=== PATIENT | male | born 1975 | race Caucasian/White ===

== ENCOUNTER 2019-03-04 11:54 | Emergency (ER) | payer MEDICAID, OTHER ==
[~2019-03-04] VITALS: Ht 167.6 cm; Wt 117.6 kg
[~2019-03-04 11:54] MED LIST: ALBU4TAB3; IBUP-1623; METH18TA5
[2019-03-04] MEDS ORDERED: LISI-167 PO (12:02)
--- NOTE | 2019-03-04 12:29 | NUR ---
PT WITH C/O SUDDEN ONSET OF CP WHILE AT WORK. PT STATES PAIN IS NEARLY GONE AT THIS TIME, BUT WAS SHARP IN NATURE. PT DENIES SOB, TRAUMA AT THIS TIME. PT TO BP, CARD MONITOR, CONT PULSE OX
[2019-03-04 12:48] LABS: BASOPHILS # (AUTO) 0.08 x10^3/uL (0-0.1); MD NO; MONOCYTES # (AUTO) 0.74 x10^3/uL (0.2-0.8); MONOCYTES % (AUTO) 8 % (2-9); RED CELL DISTRIBUTION WIDTH 13.1 % (9.4-14.8)
[2019-03-04 12:58] LABS: ALBUMIN 3.5 g/dL (3.4-5.0); ANION GAP 5 mmol/L (5-15); BASOPHILS % (AUTO) 1 % (0-1); CALCIUM 8.6 mg/dL (8.5-10.1); CHLORIDE 107 mmol/L (98-107); CREATININE 0.88 mg/dL (0.7-1.3); EOSINOPHILS # (AUTO) 0.46 x10^3/uL (0-0.4); EOSINOPHILS % (AUTO) 5 % (1-7); LYMPHOCYTES # (AUTO) 2.44 x10^3/uL (1-3.4); LYMPHOCYTES % (AUTO) 26 % (22-44); MEAN CORPUSCULAR HEMOGLOBIN 34.1 pg (27.5-34.5); MEAN CORPUSCULAR HGB CONC 34.4 g/dL (33.2-36.2); MEAN CORPUSCULAR VOLUME 99.1 fL (81-97); MEAN PLATELET VOLUME 8.7 fL (7.4-10.4); NEUTROPHILS # (AUTO) 5.56 x10^3/uL (1.8-6.8); NEUTROPHILS % (AUTO) 60 % (42-75); PLATELET COUNT 292 x10^3/uL (130-400); RED BLOOD COUNT 4.72 x10^6/uL (4.38-5.82)
[2019-03-04 13:02] LABS: TROPONIN I < 0.015 ng/mL (0.000-0.045)
[2019-03-04 13:55] VITALS: BP 124/70
--- NOTE | 2019-03-04 13:56 | NUR ---
PT RESTING ON DALE GARCIA NOTED. PT PLACED FOR RECHECK
--- NOTE | 2019-03-04 14:52 | NUR ---
Patient/Caregiver given discharge instructions and they have confirmed that they understand the instructions. Patient ambulatory with steady gait.
== END 2019-03-04 14:54 | disposition home or self-care (01) ==
LOC: ED 14:16
DX: R07.89 Other chest pain (principal); I10 Essential (primary) hypertension
CPT/HCPCS: 36415; 71045; 80048; 82040; 84484; 85025; 93005; 99284

== ENCOUNTER 2019-03-08 16:04 | Emergency (ER) | payer BC, MEDICAID ==
[~2019-03-08] VITALS: Ht 167.6 cm; Wt 118.0 kg
[~2019-03-08 16:04] MED LIST changes: +LISI-167 PO
[2019-03-08 16:40] VITALS: BP 144/92
== END 2019-03-08 17:51 | disposition home or self-care (01) ==
LOC: ED 16:51
DX: J00 Acute nasopharyngitis [common cold] (principal); E66.09 Other obesity due to excess calories; F17.210 Nicotine dependence, cigarettes, uncomplicated; I10 Essential (primary) hypertension
CPT/HCPCS: 71046; 99283

== ENCOUNTER 2019-03-18 00:26 | Emergency (ER) | payer BC, MEDICAID ==
[~2019-03-18] VITALS: Ht 167.6 cm; Wt 119.4 kg
[2019-03-18 00:30] VITALS: BP 140/90
== END 2019-03-18 01:38 | disposition home or self-care (01) ==
LOC: ED 00:57
DX: R11.2 Nausea with vomiting, unspecified (principal); R19.7 Diarrhea, unspecified; I10 Essential (primary) hypertension; Z72.89 Other problems related to lifestyle
CPT/HCPCS: 99281

== ENCOUNTER 2019-04-10 18:42 | Emergency (ER) | payer MEDICAID ==
[~2019-04-10] VITALS: Ht 167.6 cm; Wt 118.6 kg
[2019-04-10 18:46] VITALS: BP 166/107
--- NOTE | 2019-04-10 19:17 | NUR ---
PT DX WITH BRONCHITIS ON SATURDAY. MED PRESCRIBED MADE PT DROWSY AND PT DRIVES TRUCK FOR WORK. PT STOPPED TAKING MEDS AND COUGH HAS GOTTEN WORSE.
[2019-04-10] MEDS ORDERED: DEXAMETHASONE 4 MG TABLET ONE (19:43)
--- NOTE | 2019-04-10 19:45 | NUR ---
MEDS ADMIN PER JUN.
[2019-04-10] MEDS ORDERED: DEXAMETHASONE 4 MG TABLET PO ONE (20:00)
== END 2019-04-10 20:25 | disposition home or self-care (01) ==
LOC: ED 20:19
DX: B34.9 Viral infection, unspecified (principal); J02.9 Acute pharyngitis, unspecified; I10 Essential (primary) hypertension
CPT/HCPCS: 71046; 99283

== ENCOUNTER 2019-04-17 15:09 | Emergency (ER) | payer MEDICAID ==
[~2019-04-17] VITALS: Ht 167.6 cm; Wt 119.6 kg
[2019-04-17 15:11] VITALS: BP 160/110
[2019-04-17] MEDS ORDERED: BENZONATATE 100 MG CAPSULE ONE (15:26)
[2019-04-17] MEDS ORDERED: BENZONATATE 100 MG CAPSULE PO ONE (15:30)
--- NOTE | 2019-04-17 15:36 | NUR ---
PO meds given as per emar for chronic cough. Pt has no distress/dyspnea at time of assessment & d/c. Work note & Rx given. Pt verb. understanding of instructions.
== END 2019-04-17 15:36 | disposition home or self-care (01) ==
LOC: ED 15:30
DX: J20.9 Acute bronchitis, unspecified (principal); I10 Essential (primary) hypertension; J45.909 Unspecified asthma, uncomplicated
CPT/HCPCS: 93005; 99283

== ENCOUNTER 2019-04-26 18:19 | Emergency (ER) | payer MEDICAID ==
[~2019-04-26] VITALS: Ht 167.6 cm; Wt 119.7 kg
[2019-04-26 18:22] VITALS: BP 165/99
--- NOTE | 2019-04-26 18:59 | NUR ---
Pt amb w/ steady gait from [facility] at this time.
== END 2019-04-26 19:51 | disposition home or self-care (01) ==
LOC: ED 19:28
DX: S39.012A Strain of muscle, fascia and tendon of lower back, initial encounter (principal); I10 Essential (primary) hypertension; J45.909 Unspecified asthma, uncomplicated; X58.XXXA Exposure to other specified factors, initial encounter; Y93.89 Activity, other specified; Y92.89 Other specified places as the place of occurrence of the external cause; Y99.8 Other external cause status
CPT/HCPCS: 99283

== ENCOUNTER 2019-07-01 06:02 | Emergency (ER) | payer BC, MEDICAID ==
[~2019-07-01] VITALS: Ht 167.6 cm; Wt 118.0 kg
[2019-07-01 06:05] VITALS: BP 154/114
== END 2019-07-01 06:35 | disposition home or self-care (01) ==
LOC: ED 06:13
DX: S39.012A Strain of muscle, fascia and tendon of lower back, initial encounter (principal); I10 Essential (primary) hypertension; F17.210 Nicotine dependence, cigarettes, uncomplicated; J45.909 Unspecified asthma, uncomplicated; X58.XXXA Exposure to other specified factors, initial encounter; Y93.89 Activity, other specified; Y92.89 Other specified places as the place of occurrence of the external cause; Y99.8 Other external cause status
CPT/HCPCS: 99283

== ENCOUNTER 2019-07-08 14:14 | Emergency (ER) | payer BC ==
[~2019-07-08] VITALS: Ht 167.6 cm; Wt 121.9 kg
--- NOTE | 2019-07-08 14:49 | NUR ---
C/O PAIN TO UPPER BACK AND LT FLANK. STARTED THIS MORNING, WOKE W/ PAIN. HAS NAPROXEN AND ROBAXIN AT HOME. TOOK NAPROXEN 0900 TODAY. HASN'T TAKEN ROBAXIN - "I CAN'T TAKE IT UNTIL I STOP DRIVING FOR THE DAY" (COMMUTING TO/FROM WORK)
[2019-07-08] MEDS ORDERED: NAPROXEN (14:56)
[2019-07-08 14:58] VITALS: BP 136/93
== END 2019-07-08 15:18 | disposition home or self-care (01) ==
LOC: ED 15:15
DX: M54.5 Low back pain (principal); G89.29 Other chronic pain; I10 Essential (primary) hypertension; J45.909 Unspecified asthma, uncomplicated
CPT/HCPCS: 99282

== ENCOUNTER 2019-07-14 09:22 | Emergency (ER) | payer BC, MEDICAID ==
[~2019-07-14] VITALS: Ht 167.6 cm; Wt 118.6 kg
[~2019-07-14 09:22] MED LIST changes: +NAPROXEN
[2019-07-14 09:24] VITALS: BP 157/103
--- NOTE | 2019-07-14 09:40 | NUR ---
PT AMBULATES TO ROOM 5 PER PEDIS. PT PUTS ON PATIENT GOWN, AND CLIMBS INTO BET WITHOUT DIFF. PT STATES "MY LIVE JOB DOESN'T GET THAT MY BACK IS HURT AND I CAN'T LIFT 50 POUNDS. NOW IF I DON'T I'M GOING TO LOSE MY JOB." RN INQUIRES WHETHER THIS IS A WORKERS COMP, AND PATIENT STATES NO. PT HAS BEEN HERE 3 TIMES FOR SAME ISSUE, AND WANTS RESOLVE. RN INFORMED PATIENT THAT HE NEEDS TO FOLLOW UP WITH A PRIMARY MD WHO CAN HELP WITH PHYSICAL THERAPY AND PRISON TREATMENT.
--- NOTE | 2019-07-14 11:37 | NUR ---
DISCHARGE INSTRUCTIONS GIVEN TO PATIENT. PT UNHAPPY WITH HIS DISCHARGE PAPERWORK, DUE TO NO NEW MEDICATIONS. PT INFORMED TO FOLLOW UP WITH HIS PCP.
== END 2019-07-14 11:42 | disposition home or self-care (01) ==
LOC: ED 09:58
DX: S29.012A Strain of muscle and tendon of back wall of thorax, initial encounter (principal); I10 Essential (primary) hypertension; X58.XXXA Exposure to other specified factors, initial encounter; Y93.89 Activity, other specified; Y92.89 Other specified places as the place of occurrence of the external cause; Y99.8 Other external cause status
CPT/HCPCS: 99281

== ENCOUNTER 2019-07-29 22:39 | Emergency (ER) | payer MEDICAID ==
[~2019-07-29] VITALS: Ht 167.6 cm; Wt 120.7 kg
[2019-07-29] MEDS ORDERED: SODIUM CHLORIDE FLUSH 10ML SYR IVF ONE (23:00)
--- NOTE | 2019-07-29 23:08 | NUR ---
pt resting on gurney, monitors applied, siderails up x2, call light within reach
[2019-07-29] MEDS ORDERED: METH750T87 PO (23:09)
[2019-07-29 23:25] LABS: BASOPHILS # (AUTO) 0.05 x10^3/uL (0-0.1); BASOPHILS % (AUTO) 1 % (0-1); EOSINOPHILS # (AUTO) 0.47 x10^3/uL (0-0.4); EOSINOPHILS % (AUTO) 5 % (1-7); LYMPHOCYTES # (AUTO) 2.75 x10^3/uL (1-3.4); LYMPHOCYTES % (AUTO) 26 % (22-44); MD NO; MEAN CORPUSCULAR HGB CONC 34.4 g/dL (33.2-36.2); MEAN CORPUSCULAR VOLUME 96.1 fL (81-97); MEAN PLATELET VOLUME 8.6 fL (7.4-10.4); MONOCYTES # (AUTO) 0.88 x10^3/uL (0.2-0.8); MONOCYTES % (AUTO) 8 % (2-9); NEUTROPHILS # (AUTO) 6.31 x10^3/uL (1.8-6.8); NEUTROPHILS % (AUTO) 60 % (42-75); PLATELET COUNT 274 x10^3/uL (130-400); RED CELL DISTRIBUTION WIDTH 13.1 % (9.4-14.8)
[2019-07-29 23:33] LABS: ALANINE AMINOTRANSFERASE 99 U/L (12-78); ALBUMIN 3.9 g/dL (3.4-5.0); ANION GAP 8 mmol/L (5-15); CALCIUM 8.8 mg/dL (8.5-10.1); CHLORIDE 103 mmol/L (98-107); CREATININE 1.16 mg/dL (0.7-1.3)
[2019-07-29 23:38] LABS: ALKALINE PHOSPHATASE 108 U/L (45-117); BILIRUBIN,TOTAL 0.6 mg/dL (0.2-1.0); TOTAL PROTEIN 8.2 g/dL (6.4-8.2); TROPONIN I < 0.015 ng/mL (0.000-0.045)
[2019-07-29 23:59] VITALS: BP 148/90
== END 2019-07-30 00:08 | disposition home or self-care (01) ==
LOC: ED 23:47
DX: E11.65 Type 2 diabetes mellitus with hyperglycemia (principal); I10 Essential (primary) hypertension; J45.909 Unspecified asthma, uncomplicated; R94.31 Abnormal electrocardiogram [ECG] [EKG]; R42 Dizziness and giddiness
CPT/HCPCS: 36415; 80053; 82962; 83036; 83690; 84484; 85025; 93005; 99284

== ENCOUNTER 2019-09-11 00:12 | Emergency (ER) | payer MEDICAID ==
[~2019-09-11] VITALS: Ht 167.6 cm; Wt 119.5 kg
[~2019-09-11 00:12] MED LIST changes: +METH750T87 PO
[2019-09-11 00:13] VITALS: BP 155/96
== END 2019-09-11 02:05 | disposition home or self-care (01) ==
LOC: ED 01:52
DX: M54.5 Low back pain (principal); I10 Essential (primary) hypertension; E11.9 Type 2 diabetes mellitus without complications; G89.29 Other chronic pain; J45.909 Unspecified asthma, uncomplicated
CPT/HCPCS: 99283

== ENCOUNTER 2019-09-16 13:09 | Emergency (ER) | payer BC, MEDICAID ==
[~2019-09-16] VITALS: Ht 167.6 cm; Wt 123.3 kg
[2019-09-16] MEDS ORDERED: METF500T17 PO (13:48)
[2019-09-16 14:08] LABS: BASOPHILS # (AUTO) 0.04 x10^3/uL (0-0.1); BASOPHILS % (AUTO) 1 % (0-1); EOSINOPHILS # (AUTO) 0.31 x10^3/uL (0-0.4); EOSINOPHILS % (AUTO) 4 % (1-7); LYMPHOCYTES # (AUTO) 2.06 x10^3/uL (1-3.4); LYMPHOCYTES % (AUTO) 25 % (22-44); MD NO; MEAN CORPUSCULAR HEMOGLOBIN 33.3 pg (27.5-34.5); MEAN CORPUSCULAR HGB CONC 34.6 g/dL (33.2-36.2); MEAN CORPUSCULAR VOLUME 96.3 fL (81-97); MEAN PLATELET VOLUME 8.6 fL (7.4-10.4); MONOCYTES # (AUTO) 0.52 x10^3/uL (0.2-0.8); MONOCYTES % (AUTO) 6 % (2-9); NEUTROPHILS # (AUTO) 5.49 x10^3/uL (1.8-6.8); NEUTROPHILS % (AUTO) 65 % (42-75); PLATELET COUNT 263 x10^3/uL (130-400)
[2019-09-16 14:21] LABS: ALBUMIN 3.5 g/dL (3.4-5.0); ANION GAP 6 mmol/L (5-15); CALCIUM 8.9 mg/dL (8.5-10.1); CHLORIDE 105 mmol/L (98-107); CREATININE 0.92 mg/dL (0.7-1.3)
[2019-09-16 14:24] LABS: TROPONIN I < 0.015 ng/mL (0.000-0.045)
--- NOTE | 2019-09-16 14:28 | NUR ---
PT WAS AT WORK, FELT BP GO UP, "A LITTLE GAMBINO" "TIRED FEELING". 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 ORAL INTAKE THIS MORNING: "ALL PROTEIN" AND "ABOUT 7 SEN". DENIES DIETING. PT A&OX4, RESP EVEN & UNLABORED, SPEECH CLEAR, SKIN WNL. CURRENTLY, PT STATES "I FEEL BETTER", DENIES GAMBINO.
--- NOTE | 2019-09-16 14:36 | NUR ---
EKG DONE. LABS DRAWN EARLIER. CXR DONE EARLIER.
--- NOTE | 2019-09-16 15:37 | NUR ---
PT AMBULATORY TO [facility] BR W/OUT INCIDENT; GAIT STEADY.
[2019-09-16 15:51] VITALS: BP 166/104
== END 2019-09-16 15:54 | disposition home or self-care (01) ==
LOC: ED 15:40
DX: I10 Essential (primary) hypertension (principal); R51 Headache; R07.9 Chest pain, unspecified; R11.0 Nausea; E11.9 Type 2 diabetes mellitus without complications; J45.909 Unspecified asthma, uncomplicated
CPT/HCPCS: 36415; 71045; 80048; 82040; 84484; 85025; 93005; 99285

== ENCOUNTER 2019-10-05 22:32 | Emergency (ER) | payer BC, MEDICAID ==
[~2019-10-05] VITALS: Ht 167.6 cm; Wt 121.5 kg
[~2019-10-05 22:32] MED LIST changes: +METF500T17 PO
[2019-10-05 22:35] VITALS: BP 160/118
[2019-10-05] MEDS ORDERED: METOPROLOL TARTRATE 25 MG TAB ONE (22:55)
[2019-10-05] MEDS ORDERED: METOPROLOL TARTRATE 25 MG TAB PO ONE (23:00)
--- NOTE | 2019-10-05 23:16 | NUR ---
PT AGGRESSIVE AND ANGRY WITH THIS NURSE BECAUSE HIS GOWN SLIPPED DOWN HIS SHOULDERS. CUSSING AND DEMANDING WITH STAFF. PT INSTRUCTED NOT TO BE VERBALLY AGGRESSIVE WITH STAFF AND ASSISTED IN UNDRESSING.
[2019-10-05 23:23] LABS: BASOPHILS # (AUTO) 0.06 x10^3/uL (0-0.1); BASOPHILS % (AUTO) 1 % (0-1); EOSINOPHILS % (AUTO) 4 % (1-7); LYMPHOCYTES # (AUTO) 3.05 x10^3/uL (1-3.4); LYMPHOCYTES % (AUTO) 31 % (22-44); MD NO; MEAN CORPUSCULAR HEMOGLOBIN 33.6 pg (27.5-34.5); MEAN CORPUSCULAR HGB CONC 34.5 g/dL (33.2-36.2); MONOCYTES # (AUTO) 1.03 x10^3/uL (0.2-0.8); MONOCYTES % (AUTO) 10 % (2-9); NEUTROPHILS % (AUTO) 54 % (42-75); PLATELET COUNT 281 x10^3/uL (130-400); RED BLOOD COUNT 4.69 x10^6/uL (4.38-5.82); RED CELL DISTRIBUTION WIDTH 13.5 % (9.4-14.8)
[2019-10-05 23:36] LABS: ALANINE AMINOTRANSFERASE 107 U/L (12-78); ALBUMIN 3.5 g/dL (3.4-5.0); ANION GAP 7 mmol/L (5-15); CALCIUM 8.4 mg/dL (8.5-10.1); CHLORIDE 110 mmol/L (98-107); CREATININE 1.08 mg/dL (0.7-1.3)
[2019-10-05 23:40] LABS: ALKALINE PHOSPHATASE 113 U/L (45-117); BILIRUBIN,TOTAL 0.6 mg/dL (0.2-1.0); TOTAL PROTEIN 7.6 g/dL (6.4-8.2); TROPONIN I < 0.015 ng/mL (0.000-0.045)
[2019-10-06 00:15] LABS: MICROSCOPIC NOT IND
== END 2019-10-06 00:54 | disposition home or self-care (01) ==
LOC: ED 23:57
DX: R51 Headache (principal); R94.31 Abnormal electrocardiogram [ECG] [EKG]; I10 Essential (primary) hypertension; E11.9 Type 2 diabetes mellitus without complications
CPT/HCPCS: 36415; 71045; 80053; 81003; 83880; 84484; 85025; 93005; 99285

== ENCOUNTER 2019-10-12 11:21 | Emergency (ER) | payer BC, MEDICAID ==
[~2019-10-12] VITALS: Ht 167.6 cm; Wt 120.0 kg
[2019-10-12 11:23] VITALS: BP 161/99
== END 2019-10-12 12:13 | disposition home or self-care (01) ==
LOC: ED 12:10
DX: I10 Essential (primary) hypertension (principal); R51 Headache; E11.9 Type 2 diabetes mellitus without complications
CPT/HCPCS: 99281; 99282

== ENCOUNTER 2019-10-29 19:25 | Emergency (ER) | payer BC, MEDICAID ==
[~2019-10-29] VITALS: Ht 167.6 cm; Wt 120.5 kg
[2019-10-29 19:29] VITALS: BP 160/100
[2019-10-29] MEDS ORDERED: KETOROLAC 30 MG/1 ML ONE (19:44)
== END 2019-10-29 20:48 | disposition left against medical advice (07) ==
LOC: ED 20:07
DX: R42 Dizziness and giddiness (principal); Z53.21 Procedure and treatment not carried out due to patient leaving prior to being seen by health care provider
CPT/HCPCS: 93005

== ENCOUNTER 2019-11-15 16:53 | Emergency (ER) | payer BC, MEDICAID ==
[~2019-11-15] VITALS: Ht 167.6 cm; Wt 118.6 kg
[2019-11-15 16:55] VITALS: BP 161/104
--- NOTE | 2019-11-15 17:06 | NUR ---
PT REPORTS BODY ACHES, CHILLS AND SWEATS X2 DAYS, DENIES CP, SOB OR COUGH. PLACED VITAL SIGNS MONITORS. CALL LIGHT PLACED WITHIN REACH.
[2019-11-15] MEDS ORDERED: IBUPROFEN 600 MG TABLET ONE (17:29)
[2019-11-15] MEDS ORDERED: IBUPROFEN 600 MG TABLET PO ONE (17:30)
--- NOTE | 2019-11-15 17:35 | NUR ---
TASK RN COVERING PRIMARY RN MEAL BREAK. PT MEDICATED PER ERP ORDER FOR GENERALIZED ACHES/CHILLS. PT DENIES PAIN. PT STATES ERP WAS GOING TO ORDER LABS BUT PT DIDN'T WANT THEM. AWAITING DC PAPERWORK.
== END 2019-11-15 17:58 | disposition home or self-care (01) ==
LOC: ED 17:54
DX: B34.9 Viral infection, unspecified (principal); M79.10 Myalgia, unspecified site; I10 Essential (primary) hypertension; E11.9 Type 2 diabetes mellitus without complications; J45.909 Unspecified asthma, uncomplicated
CPT/HCPCS: 99282

== ENCOUNTER 2019-12-15 14:58 | Emergency (ER) | payer MEDICAID ==
[~2019-12-15] VITALS: Ht 167.6 cm; Wt 118.3 kg
[2019-12-15 15:09] VITALS: BP 153/104
[2019-12-15] MEDS ORDERED: IBUPROFEN 200 MG TABLET PO ONE (15:30)
[2019-12-15] MEDS ORDERED: IBUPROFEN 600 MG TABLET ONE (15:50)
== END 2019-12-15 16:18 | disposition home or self-care (01) ==
LOC: ED 16:00
DX: R10.32 Left lower quadrant pain (principal); I10 Essential (primary) hypertension; E11.9 Type 2 diabetes mellitus without complications
CPT/HCPCS: 99282

== ENCOUNTER 2019-12-21 08:38 | Emergency (ER) | payer MEDICAID ==
[~2019-12-21] VITALS: Ht 167.6 cm; Wt 118.5 kg
[2019-12-21 08:41] VITALS: BP 160/98
--- NOTE | 2019-12-21 09:30 | NUR ---
BANKING PARALEGAL: PT TO ROOM AT THIS TIME. NADN.AMBULATORY WITH STEADY GAIT
--- NOTE | 2019-12-21 09:36 | NUR ---
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 Right in the middle of the clinical screen, pt took a call from his mother and began discussing future moving plans. Unable to continue exam.
[2019-12-21] MEDS ORDERED: METHOCARBAMOL 750 MG TABLET ONE (10:13)
[2019-12-21] MEDS ORDERED: KETOROLAC 60 MG/2 ML ONE (10:13)
--- NOTE | 2019-12-21 10:24 | NUR ---
Pt on phone again when in to administer medication. Pt now refusing the toradol stating he "knows what works for him". Did take robaxin.
[2019-12-21] MEDS ORDERED: METHOCARBAMOL 750 MG TABLET PO ONE (10:30)
[2019-12-21] MEDS ORDERED: KETOROLAC 30 MG/1 ML IM ONE (10:30)
== END 2019-12-21 11:14 | disposition home or self-care (01) ==
LOC: ED 09:10
DX: M62.830 Muscle spasm of back (principal); J45.909 Unspecified asthma, uncomplicated; E11.9 Type 2 diabetes mellitus without complications; G89.29 Other chronic pain; I10 Essential (primary) hypertension
CPT/HCPCS: 99283

== ENCOUNTER 2019-12-26 17:56 | Emergency (ER) | payer MEDICAID ==
[~2019-12-26] VITALS: Ht 167.6 cm; Wt 119.6 kg
[2019-12-26] MEDS ORDERED: ONDANSETRON ODT 4 MG ONE (18:15)
[2019-12-26] MEDS ORDERED: MAALOX/HYOSCYAMINE/LIDOCAINE 45 ML BTL ONE (18:15)
[2019-12-26] MEDS ORDERED: ONDANSETRON ODT 4 MG PO ONE (18:30)
[2019-12-26] MEDS ORDERED: MAALOX/HYOSCYAMINE/LIDOCAINE 45 ML BTL PO ONE (18:30)
[2019-12-26 18:37] LABS: ALANINE AMINOTRANSFERASE 107 U/L (12-78); ALBUMIN 3.3 g/dL (3.4-5.0); ANION GAP 9 mmol/L (5-15); CALCIUM 9.1 mg/dL (8.5-10.1); CHLORIDE 105 mmol/L (98-107); CREATININE 1.07 mg/dL (0.7-1.3)
[2019-12-26 18:40] LABS: ALKALINE PHOSPHATASE 115 U/L (45-117); BILIRUBIN,TOTAL 0.5 mg/dL (0.2-1.0); TOTAL PROTEIN 7.7 g/dL (6.4-8.2)
[2019-12-26 18:44] LABS: BASOPHILS # (AUTO) 0.05 x10^3/uL (0-0.1); BASOPHILS % (AUTO) 0 % (0-1); EOSINOPHILS # (AUTO) 0.42 x10^3/uL (0-0.4); EOSINOPHILS % (AUTO) 4 % (1-7); LYMPHOCYTES # (AUTO) 2.57 x10^3/uL (1-3.4); LYMPHOCYTES % (AUTO) 24 % (22-44); MD NO; MEAN CORPUSCULAR HEMOGLOBIN 33.3 pg (27.5-34.5); MEAN CORPUSCULAR HGB CONC 33.9 g/dL (33.2-36.2); MEAN CORPUSCULAR VOLUME 98.2 fL (81-97); MEAN PLATELET VOLUME 8.9 fL (7.4-10.4); MONOCYTES # (AUTO) 0.75 x10^3/uL (0.2-0.8); MONOCYTES % (AUTO) 7 % (2-9); NEUTROPHILS # (AUTO) 6.92 x10^3/uL (1.8-6.8); NEUTROPHILS % (AUTO) 65 % (42-75); PLATELET COUNT 279 x10^3/uL (130-400); RED BLOOD COUNT 4.68 x10^6/uL (4.38-5.82); RED CELL DISTRIBUTION WIDTH 13.6 % (9.4-14.8)
--- NOTE | 2019-12-26 18:57 | NUR ---
REPORT GIVEN TO DREW SHELDON
[2019-12-26 19:11] VITALS: BP 135/86
== END 2019-12-26 19:13 | disposition home or self-care (01) ==
LOC: ED 18:38
DX: R10.84 Generalized abdominal pain (principal); R11.2 Nausea with vomiting, unspecified; R19.7 Diarrhea, unspecified; R74.0 Nonspecific elevation of levels of transaminase and lactic acid dehydrogenase [LDH]; I10 Essential (primary) hypertension; E11.9 Type 2 diabetes mellitus without complications
CPT/HCPCS: 36415; 80053; 83690; 85025; 99283; Q0162

== ENCOUNTER 2020-05-24 10:53 | Emergency (ER) | payer MEDICAID ==
[~2020-05-24] VITALS: Ht 167.6 cm; Wt 121.7 kg
[2020-05-24 10:57] VITALS: BP 164/103
[2020-05-24] MEDS ORDERED: IBUPROFEN 600 MG TABLET ONE (11:19)
[2020-05-24] MEDS ORDERED: IBUPROFEN 600 MG TABLET PO ONE (11:30)
== END 2020-05-24 12:33 | disposition home or self-care (01) ==
LOC: ED 11:16
DX: G89.11 Acute pain due to trauma (principal); M25.512 Pain in left shoulder; Z88.0 Allergy status to penicillin; X58.XXXA Exposure to other specified factors, initial encounter; Y93.89 Activity, other specified; Y92.488 Other paved roadways as the place of occurrence of the external cause; Y99.8 Other external cause status
CPT/HCPCS: 99283

== ENCOUNTER 2020-08-29 06:01 | Emergency (ER) | payer SELFPAY ==
[~2020-08-29] VITALS: Ht 167.6 cm; Wt 119.5 kg
--- NOTE | 2020-08-29 06:11 | NUR ---
Patient presents to ER c/o HTN. Patient states, "My BP is out of wack. [facility] and EMS was there last night for someone else. They checked my BP and it was 151/108. I took half of a Metoprolol last night around 2300. I woke up for work this morning around 0430 and felt like I got hit by a truck." Patient denies GAMBINO, dizziness, CP, or blurry vision. Patient is in NAD. Respirations even and unlabored.
--- NOTE | 2020-08-29 06:19 | NUR ---
Patient also c/o left shoulder pain but states it is from a previous injury. Denies any new pain in the area.
--- NOTE | 2020-08-29 06:47 | NUR ---
GAVE REPORT TO PITO DONIS
--- NOTE | 2020-08-29 06:54 | NUR ---
REPORT FROM PITO MILLS. PT SITTING RECLINED IN BED. PT MEDICATED WITH PO MEDS PER EMAR. NAD NOTED AT THIS TIME. PT DENIES PAIN AT THIS TIME. SIDE RAIL UP, CALL LIGHT IN REACH.
[2020-08-29 07:00] LABS: ANION GAP 6 mmol/L (5-15); CALCIUM 8.4 mg/dL (8.5-10.1); CHLORIDE 107 mmol/L (98-107); CREATININE 0.86 mg/dL (0.7-1.3)
[2020-08-29] MEDS ORDERED: LOSARTAN 50MG TABLET PO ONE (07:00)
--- NOTE | 2020-08-29 07:38 | NUR ---
MD AWARE OF PERSISTING HTN. PT ON PHONE CURRENTLY. ERMD TO REASSESS. NAD NOTED IN PT.
[2020-08-29 08:19] VITALS: BP 152/91
== END 2020-08-29 08:21 | disposition home or self-care (01) ==
LOC: ED 06:47
DX: I10 Essential (primary) hypertension (principal); E11.9 Type 2 diabetes mellitus without complications; J45.909 Unspecified asthma, uncomplicated
CPT/HCPCS: 36415; 80048; 93005; 99285

== ENCOUNTER 2020-09-14 07:44 | Emergency (ER) | payer SELFPAY ==
[~2020-09-14] VITALS: Ht 167.6 cm; Wt 118.5 kg
[2020-09-14 07:46] VITALS: BP 146/105
--- NOTE | 2020-09-14 08:18 | NUR ---
Pt changed into gown and placed on bedside monitor with good sats on RA and HTN present. Pt argumentative about wearing N95 mask with reported body aches, sore throat and cough the last few days that were bad enough to prompt his seeking MD exam today. wellfield technician completed and PA arrived at bedside for exam.
[2020-09-14] MEDS ORDERED: LOSA50TA14 PO (08:20)
== END 2020-09-14 08:38 | disposition home or self-care (01) ==
LOC: ED 08:03
DX: M79.10 Myalgia, unspecified site (principal); B34.9 Viral infection, unspecified; I10 Essential (primary) hypertension; E11.9 Type 2 diabetes mellitus without complications; Z88.0 Allergy status to penicillin
CPT/HCPCS: 99282

== ENCOUNTER 2020-09-24 11:00 | Emergency (ER) | payer MEDICAID ==
[~2020-09-24] VITALS: Ht 170.2 cm; Wt 116.5 kg
[~2020-09-24 11:00] MED LIST changes: +LOSA50TA14 PO
[2020-09-24 11:06] VITALS: BP 155/93
--- NOTE | 2020-09-24 11:35 | NUR ---
XRAY AT BEDSIDE
--- NOTE | 2020-09-24 11:54 | NUR ---
ALL RESULTS ARE BACK AT THIS TIME. CHART UP FOR RECHECK.
== END 2020-09-24 12:41 | disposition home or self-care (01) ==
LOC: ED 11:29
DX: J06.9 Acute upper respiratory infection, unspecified (principal); I10 Essential (primary) hypertension; E11.9 Type 2 diabetes mellitus without complications; J45.909 Unspecified asthma, uncomplicated
CPT/HCPCS: 71045; 99283

== ENCOUNTER 2020-09-29 00:51 | Emergency (ER) | payer MEDICAID ==
[~2020-09-29] VITALS: Ht 165.1 cm; Wt 120.0 kg
[2020-09-29] MEDS ORDERED: KETOROLAC 30 MG/1 ML IVPush ONE (01:00)
[2020-09-29] MEDS ORDERED: KETOROLAC 30 MG/1 ML ONE (01:13)
[2020-09-29] MEDS ORDERED: IBUPROFEN 800 MG TABLET ONE (01:15)
[2020-09-29 01:20] LABS: BASOPHILS % (AUTO) 1 % (0-1); EOSINOPHILS % (AUTO) 5 % (1-7); LYMPHOCYTES % (AUTO) 32 % (22-44); MEAN CORPUSCULAR HEMOGLOBIN 33.8 pg (27.5-34.5); MEAN CORPUSCULAR HGB CONC 35.9 g/dL (33.2-36.2); MEAN PLATELET VOLUME 8.7 fL (7.4-10.4); MONOCYTES % (AUTO) 8 % (2-9); NEUTROPHILS % (AUTO) 54 % (42-75); PLATELET COUNT 257 x10^3/uL (130-400); RED CELL DISTRIBUTION WIDTH 12.9 % (9.4-14.8)
--- NOTE | 2020-09-29 01:22 | NUR ---
pt refusing im toradol, switched to motrin. tolerated well. cxr at bs.
[2020-09-29 01:25] LABS: ALBUMIN 3.5 g/dL (3.4-5.0); ANION GAP 6 mmol/L (5-15); CALCIUM 8.4 mg/dL (8.5-10.1); CHLORIDE 106 mmol/L (98-107); CREATININE 1.09 mg/dL (0.7-1.3)
[2020-09-29 01:29] LABS: TROPONIN I < 0.015 ng/mL (0.000-0.045)
[2020-09-29] MEDS ORDERED: IBUPROFEN 800 MG TABLET PO ONE (01:30)
[2020-09-29 01:55] VITALS: BP 160/75
--- NOTE | 2020-09-29 01:55 | NUR ---
pt alseep on cart. chart up for review. vss.
== END 2020-09-29 02:39 | disposition home or self-care (01) ==
LOC: ED 00:56
DX: R07.89 Other chest pain (principal); R94.31 Abnormal electrocardiogram [ECG] [EKG]; E11.9 Type 2 diabetes mellitus without complications; I10 Essential (primary) hypertension; J45.909 Unspecified asthma, uncomplicated
CPT/HCPCS: 36415; 71045; 80048; 82040; 84484; 85025; 93005; 99285

== ENCOUNTER 2020-10-28 19:37 | Emergency (ER) | payer SELFPAY ==
[~2020-10-28] VITALS: Ht 167.6 cm; Wt 121.0 kg
[2020-10-28 19:55] VITALS: BP 146/94
--- NOTE | 2020-10-28 20:02 | NUR ---
FIRST CONTACT: PT SAYS HIS PRESSURE "HAS BEEN OUT OF WHACK, AND HAS BEEN HIGH". SAYS HE'S BEEN TAKING HIS MEDICINE, AND IS ON [place] AND TOOK IT THIS MORNING. PT TO BED WITH STADY GAIT. ATTACHED TO MONITORS. VSS. HILL.
--- NOTE | 2020-10-28 20:27 | NUR ---
Patient given discharge instructions and they have confirmed that they understand the instructions. Patient ambulatory with steady gait. NAD, all questions answered appropriately, denies additional needs at this time. No personal belongings left in room after discharge.
== END 2020-10-28 20:28 | disposition home or self-care (01) ==
LOC: ED 20:00
DX: R42 Dizziness and giddiness (principal); I10 Essential (primary) hypertension; E11.9 Type 2 diabetes mellitus without complications
CPT/HCPCS: 99281; 99283

== ENCOUNTER 2020-12-14 17:30 | Emergency (ER) | payer MEDICAID ==
[~2020-12-14] VITALS: Ht 167.6 cm; Wt 116.5 kg
[2020-12-14 18:06] VITALS: BP 156/106
--- NOTE | 2020-12-14 18:20 | NUR ---
RESIDENTIAL LEASING MANAGER: PT TO BE DISCHARGED FROM TRIAGE, CLEARED FOR D/C BY PROVIDER. TO PROVIDE PRESCRIPTION FOR INHALER. ASPHALT DISTRIBUTOR TENDER SANTOSH AWARE. AWAITING CHART AND DISCHARGE PAPERS FROM ERP.
--- NOTE | 2020-12-14 18:40 | NUR ---
PRODUCT SCIENTIST: PT PACING AT CHARGE DESK REQUESTING DISCHARGE PAPERS, CONTINUED AWAITING PAPERWORK FOR DISCHARGE. PT STATES "GIVE MY MY PAPERS OR I WILL LEAVE, I CAN'T BE WAITING HERE ALL DAY, 30 MINTUES IS A LONG TIME ALREADY. I JUST WANT TO LEAVE, I FEEL FINE, MY SHORTNESS OF BREATH IS GONE. HE SAID HE WOULD REFILL MY INHALER." PT GIVEN DISCHARGE INSTRUCTIONS BY THIS RN AND BRENDON MENA, PT VERBALIZED UNDERSTANDING. HANDOUTS IN HAND, AMBULATED TO CHECKOUT DESK WITH STEADY GAIT. NAD NOTED. RESP REGULAR AND UNLABORED. PT REFUSED REPEAT VITALS FOR DISCHARGE, BRENDON MENA AND EDITOR FARM JOURNAL SANTOSH AWARE. A&OX4 AT DISCHAGE.
== END 2020-12-14 18:44 | disposition home or self-care (01) ==
LOC: ED 17:45
DX: J45.31 Mild persistent asthma with (acute) exacerbation (principal); Z76.0 Encounter for issue of repeat prescription; R42 Dizziness and giddiness; I10 Essential (primary) hypertension; E11.9 Type 2 diabetes mellitus without complications; G43.909 Migraine, unspecified, not intractable, without status migrainosus
CPT/HCPCS: 93005; 99283

== ENCOUNTER 2020-12-22 20:11 | Emergency (ER) | payer MEDICAID ==
[~2020-12-22] VITALS: Ht 167.6 cm; Wt 117.4 kg
[2020-12-22 20:14] VITALS: BP 184/108
== END 2020-12-22 20:31 | disposition left against medical advice (07) ==
LOC: ED 20:30
DX: H57.89 Other specified disorders of eye and adnexa (principal); R51.9 Headache, unspecified; R11.0 Nausea; Z53.21 Procedure and treatment not carried out due to patient leaving prior to being seen by health care provider

== ENCOUNTER 2021-01-04 09:38 | Emergency (ER) | payer MEDICAID ==
[~2021-01-04] VITALS: Ht 167.6 cm; Wt 112.6 kg
[2021-01-04 11:32] VITALS: BP 166/98
== END 2021-01-04 13:00 | disposition home or self-care (01) ==
LOC: ED 09:44
DX: R10.32 Left lower quadrant pain (principal); E11.65 Type 2 diabetes mellitus with hyperglycemia; I88.0 Nonspecific mesenteric lymphadenitis; R19.7 Diarrhea, unspecified; I10 Essential (primary) hypertension; Z88.0 Allergy status to penicillin